=== PATIENT | female | born 1955 ===

== ENCOUNTER 2021-01-04 09:32 | Outpatient (CLI) | payer BC, SELFPAY ==
--- NOTE | 2021-01-28 14:44 | WPDSLEEPSTUD ---
Sleep Study Date of Study: 01/04/21 Ordering Provider: Jonatan Allred Interpreting Physician: Karin Rowland MD Sleep Study Type: Split Polysomnogram Height: 1.65 m Weight: 89.811 kg Body Mass Index: 32.9 Neck Circumference (inches): 14 [place]: 11 Reason for Sleep Study History of obstructive sleep apnea, her neurologist suggested oral appliance may be more comfortable Hypersomnia Sleep History Chari Acuna is a 65 year old female with obstructive sleep apnea. She does not awaken from sleep feeling short of breath or awaken with heartburn, belching or coughing. She occasionally snores, occasionally loudly enough that others complain about it and she occasionally has trouble sleeping with a cold. She does not wake up gasping for breath at night. She does not have a breathing problem at night observed by others. She does not sweat excessively at night. She rarely notices her heart pounding or beating irregularly at night. She rarely falls asleep during the day, rarely falls asleep involuntarily and never falls asleep while driving. She does not have loss of muscle tone with strong emotion. She rarely has daytime difficulties due to excessive sleepiness. She rarely feels paralyzed on waking or falling asleep. She occasionally has vivid dreamlike scenes upon awakening or falling asleep. She has never frayed to go to sleep. She rarely has nightmares. She occasionally remembers her dreams. She constantly has racing thoughts. She occasionally feels sad or depressed. She constantly has anxiety. She occasionally has muscular tension. She occasionally notices parts of her body jerking. She rarely kicks at night. She frequently has crawling and aching feelings in her legs in the evening. She rarely has any kind of leg pain at night. She rarely has morning jaw pain. She does not grind her teeth during sleep. She frequently is bothered by pain during the day due to osteoarthritis. She occasionally is awakened by pain at night in her feet and due to arthritis pain. She frequently wakes up feeling stiff in the morning. She rarely wakes up with sore achy muscles. She occasionally wakes up with pain in the neck and spine. She has headaches. She has partial seizure disorder and her episodes cause her to be dizzy but they are rare and controlled by medications. She has fatigue and memory problems. Normal bedtime is around midnight, falls asleep within 5-10 minutes. She does not think that she wakes up at night. If she does wake she is able to go back to sleep within 30-40 minutes. If she does wake at night she tries to return to sleep, she may read or if she is completely wide awake she will watch television. She usually awakens between 630 and 7:00 a.m.. She has the same schedule on the weekend. She estimates 6 hours or so of sleep at night. [facility] Past Medical History Medical History (Updated 01/28/21 @ 15:09 by Karin Rowland MD) Anxiety and depression Dry eye syndrome Dyslipidemia Migraine headache Obstructive sleep apnea Osteoarthritis Partial seizure disorder Seasonal allergic conjunctivitis Surgical History Surgical History (Updated 01/28/21 @ 15:07 by Karin Rowland MD) History of eye surgery 6 eye surgeries in childhood History of foot surgery 3 left foot surgeries History of right knee joint replacement 2018 Social History Social History (Updated 01/28/21 @ 15:09 by Karin Rowland MD) Smoking status: Never smoker Alcohol intake: current Living arrangements: with family Occupation/Education: retired Medications Medications: topiramate Celebrex levetiracetam vitamin-D zinc Zyrtec lutein eye supplement topiramate aspirin pravastatin Sleep Procedure This test was performed using the [employer] multiple channel system including EOG, EEG, submental EMG, EKG, nasal and oral airflow using thermistors and nasal pressure sensors, chest and abdominal belts for body position abbe
[2021-01-28 15:26] VITALS: BMI 32.9
== END 2021-01-05 07:15 | disposition home or self-care (01) ==
LOC: ANHCSM 09:32
DX: G47.33 Obstructive sleep apnea (adult) (pediatric) (principal); Z68.32 Body mass index [BMI] 32.0-32.9, adult
CPT/HCPCS: 95811